=== PATIENT | male | born 1965 | race Caucasian/White ===

== ENCOUNTER 2018-08-09 05:37 | Emergency (ER) | payer OTHER ==
[~2018-08-09] VITALS: Ht 180.3 cm; Wt 95.3 kg
[2018-08-09 05:48] VITALS: BP 151/80
== END 2018-08-09 06:21 | disposition home or self-care (01) ==
LOC: ER 05:37
DX: S46.811A Strain of other muscles, fascia and tendons at shoulder and upper arm level, right arm, initial encounter (principal); S66.811A Strain of other specified muscles, fascia and tendons at wrist and hand level, right hand, initial encounter; S16.1XXA Strain of muscle, fascia and tendon at neck level, initial encounter; S70.01XA Contusion of right hip, initial encounter; S00.93XA Contusion of unspecified part of head, initial encounter; W00.0XXA Fall on same level due to ice and snow, initial encounter; Y92.89 Other specified places as the place of occurrence of the external cause; Y93.89 Activity, other specified; Y99.8 Other external cause status